=== PATIENT | female | born 1930 | race Caucasian/White ===

== ENCOUNTER 2016-10-27 21:50 | Emergency (ER) | payer MEDICARE, OTHER ==
[2016-10-28] MEDS ORDERED: PREDNISONE 20 MG TABLET ONE (00:08)
[2016-10-28] MEDS ORDERED: DOXYCYCLINE HYCLATE 100 MG TABLET ONE (00:09)
--- NOTE | 2016-10-28 08:26 | RAD ---
CHEST 2 VIEWS HISTORY: Sore throat and body aches. Frontal and lateral chest radiographs dated 10/27/2016.. COMPARISON: None. FINDINGS: LUNG VOLUMES: Hyperinflation. FOCAL AIRSPACE OPACITY: Right lower lobe airspace abnormality PLEURAL EFFUSION: None. CARDIOMEDIASTINAL SILHOUETTE: Mild to moderate cardiomegaly. Calcified aortic arch. PNEUMOTHORAX: None identified. A lateral apical fibrotic change. OSSEOUS STRUCTURES: Mild kyphoscoliosis with findings of thoracic disc degeneration. IMPRESSION: 1. Right lower lobe airspace abnormality worrisome for pneumonia, short-term follow-up is recommended. 2. Hyperinflation compatible with obstructive pulmonary disease with apical fibrotic changes. 3. Dedicated attention to the right apex is recommended given focal pleural thickening, assessment in 3 months recommended. 4. Evidence of aortic atherosclerotic disease and thoracic spondylosis.
== END 2016-10-28 00:05 | disposition home or self-care (01) ==
LOC: ED 21:50
DX: R05 Cough (principal); R50.9 Fever, unspecified; J02.9 Acute pharyngitis, unspecified
CPT/HCPCS: 87880; 71020; 87804; 99283 ×2; J7512; A9270